=== PATIENT | male | born 1975 | race Caucasian/White ===

== ENCOUNTER 2018-06-05 10:23 | Emergency (ER) | payer BC, OTHER ==
[~2018-06-05] VITALS: Ht 182.9 cm; Wt 91.6 kg
--- NOTE | 2018-06-05 10:54 | ED Lower Extremity ---
General Chief Complaint: Lower Extremity Stated Complaint: LEFT CALF MUSCLE PAIN Source: patient Exam Limitations: no limitations History of Present Illness Date Seen by Provider: Jun 05, 2018 Time Seen by Provider: 10:46 Initial Comments Patient presents to ER by private conveyance with a chief complaint that he was working out doing some leg lifts with weights and heard/felt a tearing popping sensation and felt searing pain in his gastrocnemius on the left side. He stopped working out immediately went home and iced it and took ibuprofen with only minimal relief. He is still hurting this morning so he came in. His last dose of ibuprofen was at about 6:30 this morning. He is having no fevers chills nausea sweats vomiting or diarrhea. He has no history of surgeries on his leg or any other orthopedic surgeries. He had no trauma otherwise to the leg. Patient states about a month or 2 ago he was on minocycline for about 4 weeks for some acne on his back that cleared up. Allergies and Home Medications Allergies Coded Allergies: No Known Drug Allergies (Unverified , 06/05/18) Home Medications No Active Prescriptions or Reported Meds Patient Home Medication List Home Medication List Reviewed: Yes Constitutional: No chills, No diaphoresis EENTM: No hearing loss, No ear pain Respiratory: No cough, No short of breath Cardiovascular: No chest pain, No palpitations Gastrointestinal: No abdominal pain, No constipation Genitourinary: No discharge, No dysuria Musculoskeletal: No back pain, No joint pain Skin: No pruritus, No rash Psychiatric/Neurological: Denies Headache, Denies Numbness Past Urypaje-Mhyplf-Ekfkfr Hx Patient Social History Alcohol Use: Rarely Uses Recreational Drug Use: No Smoking Status: Never a Smoker Recent Foreign Travel: No Contact w/Someone Who Travel: No Recent Hopitalizations: No Physical Abuse: No Sexual Abuse: No Past Medical History Surgeries: Yes Adenoidectomy, Eye Surgery, Tonsillectomy Nursing Suicide Risk Score: 0 Physical Exam Vital Signs Vital Signs - First Documented 06/05/18 10:30 Temp 97.1 Pulse 109 Resp 18 B/P (MAP) 148/70 (96) Pulse Ox 96 Capillary Refill : Height, Weight, BMI Height: ', " Weight: lbs oz, kg Method: ,BMI General Appearance: WD/WN, no apparent distress HEENT: PERRL/EOMI, normal ENT inspection Cardiovascular: normal peripheral pulses, regular rate, rhythm Respiratory: no respiratory distress, no accessory muscle use Legs: right leg non-tender; bilateral leg normal inspection, bilateral leg normal range of motion; right leg no evidence of injury; left leg pain, left leg soft tissue tenderness, left leg swelling (mild) Neurologic/Tendon: normal sensation, normal motor functions, other (partial Arora sign left leg. He has reduced movement of the calcaneus on squeezing the gastrocnemius) Neurologic/Psychiatric: alert, oriented x 3 Skin: normal color, warm/dry Progress/Results/Core Measures Results/Orders My Orders Orders - RADHA AKERS Hydrocodone/Apap 5/325 Tablet (Lortab 5 (06/05/18 11:00) Vital Signs/I&O 06/05/18 10:30 Temp 97.1 Pulse 109 Resp 18 B/P (MAP) 148/70 (96) Pulse Ox 96 Progress Progress Note : Time: 10:58 Progress Note Discussed doing an ultrasound to further concern from the diagnosis but medically he appears to have at least a partial Achilles tear and will have him follow up with Drs. Anegla outpatient. We'll put him in a boot. We'll give him some hydrocodone in addition to the Motrin. Consults : Consulting Physician: JESUS ANGELA MD Consults Notes Discussed case and he suggests putting the patient in a boot and have him follow -up with him in the clinic. Departure Impression Primary Impression: Achilles rupture, left Qualified Codes: S86.012A - Strain of left Achilles tendon, initial encounter Disposition: 01 HOME, SELF-CARE Condition: Stable Departure-Patient Inst. Decision time for Depature: 11:00 Referrals: NO,LOCAL PHYSICIAN (PCP/Family) Primary Care Physician Patient Instructions: Achilles Tendon Rupture (DC) Add. Discharge Instructions: Use muscle rubs, Motrin 800 mg every 8 hours and 1-2 tablets of hydrocodone every 6 hours as needed for breakthrough pain. Keep the boot on. Follow-up with Drs. Angela in the clinic. All discharge instructions reviewed with patient and/or family. Voiced understanding. Scripts Hydrocodone Bit/Acetaminophen (Hydrocodone/Acetaminophen 5/325mg Tablet) 1 Tab Tab 1-2 EACH PO Q6H PRN for BREAKTHROUGH PAIN, #15 TAB 0 Refills Prov: RADHA AKERS 06/05/18 Work/School Note: Work Release Form Date Seen in the Emergency Department: Jun 05, 2018 Return to Work: Jun 06, 2018 Restrictions: Need Release from Doctor Other Restrictions Listed Below: Wear boot at all times until released by physician. No lifting over #20. Copy Copies To 1: JESUS ANGELA MD, TITUS J Jun 05, 2018 10:54
[2018-06-05] MEDS ORDERED: HYDROcodone/APAP 5 MG/325 MG (LORTAB) TAB PO ONE (11:00)
[2018-06-05] MEDS ORDERED: ACHD5005 PO (11:01)
[2018-06-05] MEDS ORDERED: ONDANSETRON 4 MG (ZOFRAN) ORAL DISSOLVE TAB ONE (11:17)
[2018-06-05] MEDS ORDERED: ONDA4TAB11 PO (11:20)
[2018-06-05 11:22] VITALS: BP 148/70
[2018-06-05] MEDS ORDERED: ONDANSETRON 4 MG (ZOFRAN) ORAL DISSOLVE TAB PO ONE (11:30)
== END 2018-06-05 11:22 | disposition home or self-care (01) ==
LOC: ER 10:26
DX: S86.012A Strain of left Achilles tendon, initial encounter (principal); Z90.89 Acquired absence of other organs; X50.0XXA Overexertion from strenuous movement or load, initial encounter
CPT/HCPCS: 99283

== ENCOUNTER → 2018-06-21 | Outpatient (CLI) | payer BC ==
[~2018-06-21] MED LIST: ACHD5005 PO; ONDA4TAB11 PO
--- NOTE | 2018-06-21 14:03 | Diagnostic Imaging Report ---
EXAMINATION: Cervical spine. INDICATION: Neck pain. FINDINGS: AP, lateral, odontoid, and swimmer's views were obtained. There are no prior studies available for comparison. The lateral view shows the vertebral body heights and alignment to be generally within normal limits. The intervertebral disc spaces are fairly well maintained. There is no fracture or acute bony abnormality noted. There are small bilateral cervical ribs. There is no sign of retropharyngeal edema. The lung apices are clear. IMPRESSION: 1. There is no evidence for an acute bony abnormality. There are small bilateral cervical ribs. 2. If there is clinical concern regarding spinal stenosis or nerve root encroachment, then MRI will be recommended for additional study. Dictated by: Dictated on workstation # [id number]
== END ==
LOC: RAD 12:51
DX: M54.2 Cervicalgia (principal)
CPT/HCPCS: 72040

== ENCOUNTER → 2018-06-26 | Outpatient (CLI) | payer BC ==
--- NOTE | 2018-06-26 08:28 | Diagnostic Imaging Report ---
PROCEDURE: MR imaging cervical spine without contrast. TECHNIQUE: Multiplanar, multisequence MR imaging of the cervical spine was performed without contrast. INDICATION: Cervical radiculopathy. COMPARISON: Cervical spine radiographs 06/21/2018. FINDINGS: Normal alignment. Vertebral body heights are preserved. Normal bone marrow signal. No abnormal signal in the cervical spinal cord. The visualized paravertebral soft tissues are unremarkable. C2-C3: Uncovertebral joint hypertrophy results in mild right neural foraminal narrowing. No spinal canal or left neural foraminal narrowing. C3-C4: Uncovertebral joint hypertrophy results in moderate right neural foraminal narrowing. No left neural foraminal or spinal canal narrowing. C4-C5: No spinal canal or neural foraminal narrowing. C5-C6: Right paracentral disc osteophyte complex results in advanced right neural foraminal narrowing. Uncovertebral joint hypertrophy also contributes to moderate left neural foraminal narrowing. Broad-based disc bulge results in mild spinal canal narrowing. C6-C7: No spinal canal or neural foraminal narrowing. C7-T1: No spinal canal or neural foraminal narrowing. IMPRESSION: 1. Spondylotic changes are greatest at C5-C6 and there is advanced right and moderate left neural foraminal narrowing. There is also moderate neural foraminal narrowing on the right at C3-C4. 2. No acute osseous findings. 3. No abnormal signal in the cervical spinal cord. Dictated by: Dictated on workstation # [id number]
== END ==
LOC: RAD 07:14
DX: M47.22 Other spondylosis with radiculopathy, cervical region (principal); M99.71 Connective tissue and disc stenosis of intervertebral foramina of cervical region
CPT/HCPCS: 72141

== ENCOUNTER 2018-08-06 11:11 | Emergency (ER) | payer BC ==
[~2018-08-06] VITALS: Ht 182.9 cm; Wt 89.4 kg
--- NOTE | 2018-08-06 11:36 | ED Cough/URI ---
General Chief Complaint: Cough/Cold/Flu Symptoms Stated Complaint: COUGH;HEADACHE;RUNNY NOSE Nursing Triage Note: pt presents to ed with complaints of cough/nasal congestion/birch since 2299 yesterday. pt denies taking any medicine for his symptoms Source: patient Exam Limitations: no limitations History of Present Illness Date Seen by Provider: Aug 06, 2018 Time Seen by Provider: 11:34 Initial Comments Patient is a 42-year-old male who presents to the emergency room with complains of cough, nasal congestion, headache since 2299 last night. He reports that he was sent home from work when his cough today and decided to come to the emergency room to get checked out. He denies taking any lwxg-smf-tavnxri medications for his symptoms. Timing/Duration: yesterday Associated Symptoms: cough, headache, nasal congestion, nasal drainage Allergies and Home Medications Allergies Coded Allergies: vancomycin (Verified Allergy, Unknown, 08/06/18) Home Medications Hydrocodone Bit/Acetaminophen 1 Tab Tab, 1-2 EACH PO Q6H PRN for BREAKTHROUGH PAIN Prescribed by: RADHA AKERS on 06/05/18 1101 Ondansetron 4 Mg Tab.rapdis, 4 MG PO Q6H PRN for NAUSEA/VOMITING Prescribed by: RADHA AKERS on 06/05/18 1120 Patient Home Medication List Home Medication List Reviewed: Yes Review of Systems Review of Systems Constitutional: see HPI; No chills, No fever EENTM: see HPI, nose congestion Respiratory: see HPI, cough Psychiatric/Neurological: See HPI, Headache All Other Systems Reviewed Negative Unless Noted: Yes Past Dychlno-Jkvevq-Vuvjat Hx Past Med/Social Hx: Reviewed Nursing Past Med/Soc Hx Patient Social History Alcohol Use: Occasionally Uses Alcohol Beverage of Choice: Beer Recreational Drug Use: No Smoking Status: Never a Smoker Recent Foreign Travel: No Contact w/Someone Who Travel: No Recent Infectious Disease Expo: No Recent Hopitalizations: No Physical Abuse: No Sexual Abuse: No Mistreated: No Fear: No Past Medical History Surgeries: Yes Adenoidectomy, Eye Surgery, Tonsillectomy Cardiac: No Neurological: No Genitourinary: No Gastrointestinal: No Musculoskeletal: Yes (chronic neck pain) HEENT: No Cancer: No Psychosocial: No Integumentary: No Blood Disorders: No Family Medical History Reviewed Nursing Family Hx Physical Exam Vital Signs - First Documented 08/06/18 11:21 Temp 98.7 Pulse 90 Resp 18 B/P (MAP) 149/63 (91) Pulse Ox 100 O2 Delivery Room Air Capillary Refill : Less Than 3 Seconds Height: 6'0" Weight: 197lbs. oz. 89.007255je; BMI Method:Stated General Appearance: WD/WN, no apparent distress HEENT: PERRL/EOMI, normal ENT inspection, TMs normal, pharynx normal Respiratory: chest non-tender, lungs clear, normal breath sounds, no respiratory distress, no accessory muscle use Cardiovascular: regular rate, rhythm, no edema, no gallop, no JVD, no murmur Neurologic/Psychiatric: alert, normal mood/affect, oriented x 3 Skin: normal color, warm/dry Progress/Results/Core Measures Suspected Sepsis Recent Fever Within 48 Hours: No Infection Criteria Present: None New/Unexplained Altered Menta: No Sepsis Screen: No Definite Risk SIRS Temperature:98.7 Pulse: 90 Respiratory Rate: 18 Blood Pressure 149 /63 Mean: 91 Results/Orders My Orders Orders - CJ MENESES Promethazine/ Codeine Syrup (Phenergan W (08/06/18 11:45) Medications Given in ED Current Medications Medications Dose Ordered Sig/Jm Route Start Time Stop Time Status Last Admin Dose Admin Promethazine HCl/ Codeine 5 ml ONCE ONCE PO 08/06/18 11:45 08/06/18 11:46 DC 08/06/18 11:37 5 ML Vital Signs/I&O 08/06/18 08/06/18 08/06/18 11:21 11:21 11:40 Temp 98.7 98.3 Pulse 90 87 Resp 18 16 B/P (MAP) 149/63 (91) 132/78 Pulse Ox 100 99 O2 Delivery Room Air Capillary Refill : Less Than 3 Seconds Blood Pressure Mean: 91 Progress Note : Time: 11:40 Progress Note I believe that this is a viral illness. He has had symptoms less than 14 hours. I have instructed him to use lhoh-mxj-nyyglws medications Tylenol ibuprofen for pain, and I have prescribed a Phenergan dextro morphine cough syrup. He agrees with plans for discharge, return precautions were given. Departure Impression Primary Impression: Upper respiratory infection, viral Disposition: 01 HOME, SELF-CARE Condition: Stable/Unchanged Departure-Patient Inst. Decision time for Depature: 11:43 Referrals: CAROLYN HERNANDEZ MD (PCP/Family) Primary Care Physician Patient Instructions: Cough, Runny Nose, and the Common Cold (DC) Add. Discharge Instructions: Take medications as directed. Follow-up with your primary care provider within 1 week for recheck. He may use ibuprofen and Tylenol as directed by the bottle for pain relief. Return back to the emergency room for any worsening symptoms and as needed. All discharge instructions reviewed with patient and/or family. Voiced understanding. CJ MENESES Aug 06, 2018 11:36
[2018-08-06 11:40] VITALS: BP 132/78
[2018-08-06] MEDS ORDERED: PROMETHAZINE/ CODEINE SYRUP 5 ML UDC PO ONE (11:45)
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
== END 2018-08-06 11:40 | disposition home or self-care (01) ==
LOC: EDUNIT# 11:11 → ER 11:12
DX: J06.9 Acute upper respiratory infection, unspecified (principal); Z88.0 Allergy status to penicillin; Z90.89 Acquired absence of other organs
CPT/HCPCS: 99283

== ENCOUNTER → 2018-08-17 | Outpatient (CLI) | payer BC ==
[~2018-08-17] MED LIST changes: +GADOBUTROL 10 MMOL/10 ML (GADAVIST) VIAL IV ONE
--- NOTE | 2018-08-17 16:19 | Diagnostic Imaging Report ---
PROCEDURE: MR imaging of the brain with and without contrast. TECHNIQUE: Multiplanar, multisequence MR imaging of the brain was performed with and without contrast. INDICATION: Headaches. COMPARISON: There are no prior studies available for comparison. FINDINGS: There is no mass, shift of the midline, or hemorrhage to suggest an acute intracranial abnormality. There is a well-circumscribed 7 x 8 mm nonenhancing lesion. 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 There is no abnormal enhancement on the postcontrast series to indicate a neoplastic or infectious process. There is no abnormal signal arising from the brain on the diffusion series to indicate an area of acute ischemia either. The FLAIR series is also unremarkable for any abnormal signal in the periventricular white matter that would suggest demyelinating disease. The ventricles are not abnormally dilated. The sella is not enlarged, and the expected carotid flow voids are evident bilaterally. The orbits are symmetrical and within normal limits. The seventh and eighth nerve complexes are unremarkable. There is mucosal thickening and/or retention cyst in the floor of the right maxillary antrum. There is minimal mucosal thickening of the left maxillary antrum. The sinuses are otherwise generally clear. IMPRESSION: 1. There is no evidence for an acute intracranial abnormality. 2. 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 3. There is no abnormal enhancement to suggest a neoplastic or infectious process. There is no sign of demyelinating disease either. Dictated by: Dictated on workstation # [id number]
== END ==
LOC: RAD 14:08
DX: E34.8 Other specified endocrine disorders (principal); R51 Headache
CPT/HCPCS: 70553

== ENCOUNTER 2019-04-25 18:05 | Emergency (ER) | payer SELFPAY ==
[~2019-04-25] VITALS: Ht 182.9 cm; Wt 86.2 kg
[~2019-04-25 18:05] MED LIST changes: -GADOBUTROL 10 MMOL/10 ML (GADAVIST) VIAL IV ONE
[2019-04-25] MEDS ORDERED: GABA-488 (18:30)
[2019-04-25] MEDS ORDERED: TRIAMCINOLONE ACET (KENALOG-40) 40 MG/ML 1 ML VIAL IA ONE (18:30)
[2019-04-25] MEDS ORDERED: MELO15TA39 (18:30)
[2019-04-25] MEDS ORDERED: LIDOCAINE 1% INJ 20 ML 20 ML VIAL INJ ONE (18:30)
--- NOTE | 2019-04-25 18:31 | ED Lower Extremity ---
General Chief Complaint: Lower Extremity Stated Complaint: L KNEE PAIN Source: patient Exam Limitations: no limitations History of Present Illness Date Seen by Provider: April 25, 2019 Time Seen by Provider: 18:27 Initial Comments To ER with reports of left knee pain for about one week. States that he does lift weights, has some occasional aches and pains in the knee after doing so but it's nothing that ice and ibuprofen doesn't help with. He was on the floor about a week ago helping his children clean up their toys when the pain started, he does not recall any particular injury. He denies fevers or chills. Does feel that the left knee is a bit swollen. Onset: just prior to arrival Severity: moderate Pain/Injury Location: left knee Method of Injury: unknown Modifying Factors: Worse With Movement Allergies and Home Medications Allergies Coded Allergies: vancomycin (Verified Allergy, Unknown, 08/06/18) Home Medications Hydrocodone Bit/Acetaminophen 1 Tab Tab, 1-2 EACH PO Q6H PRN for BREAKTHROUGH PAIN Prescribed by: RADHA AKERS on 06/05/18 1101 Ondansetron 4 Mg Tab.rapdis, 4 MG PO Q6H PRN for NAUSEA/VOMITING Prescribed by: RADHA AKERS on 06/05/18 1120 Patient Home Medication List Home Medication List Reviewed: Yes Review of Systems Constitutional: see HPI EENTM: see HPI Respiratory: no symptoms reported Cardiovascular: no symptoms reported Genitourinary: no symptoms reported Musculoskeletal: see HPI Skin: no symptoms reported Psychiatric/Neurological: No Symptoms Reported Past Fjzewsw-Uqcrpb-Cslkws Hx Patient Social History Alcohol Use: Occasionally Uses Alcohol Beverage of Choice: Beer Recreational Drug Use: No Smoking Status: Never a Smoker Recent Foreign Travel: No Contact w/Someone Who Travel: No Recent Hopitalizations: No Physical Abuse: No Sexual Abuse: No Mistreated: No Fear: No Past Medical History Surgeries: Yes Adenoidectomy, Eye Surgery, Tonsillectomy Cardiac: No Neurological: No Genitourinary: No Gastrointestinal: No Musculoskeletal: Yes (chronic neck pain) HEENT: No Cancer: No Psychosocial: No Integumentary: No Blood Disorders: No Physical Exam Vital Signs Vital Signs - First Documented 04/25/19 18:15 Temp 97.5 Pulse 90 Resp 18 B/P (MAP) 163/97 (119) Pulse Ox 98 O2 Delivery Room Air Capillary Refill : Height, Weight, BMI Height: 6'0" Weight: 197lbs. oz. 89.904991zr; BMI Method:Stated General Appearance: WD/WN, no apparent distress HEENT: PERRL/EOMI, normal ENT inspection Respiratory: no respiratory distress, no accessory muscle use Hips: bilateral hip non-tender, bilateral hip normal inspection, bilateral hip normal range of motion Legs: bilateral leg non-tender, bilateral leg normal inspection, bilateral leg normal range of motion Knees: left knee pain, left knee soft tissue tenderness, left knee swelling, left knee other (no erythema or overlying punctures in the skin) Ankles: bilateral ankle non-tender, bilateral ankle normal inspection, bilateral ankle normal range of motion Neurologic/Psychiatric: alert, normal mood/affect, oriented x 3 Skin: normal color, warm/dry Progress/Results/Core Measures Results/Orders My Orders Orders - CASSY JONES APRN Knee, Left, 3 Views (04/25/19 18:25) Body Fluid Cell Count (04/25/19 18:25) Body Fluid Culture (04/25/19 18:25) Crystals,Body Fluid (04/25/19 18:25) Lidocaine 1% Inj 20 Ml (Xylocaine 1% Inj (04/25/19 18:30) Triamcinolone Acetonide Im (Kenalog-40) (04/25/19 18:30) Vital Signs/I&O 04/25/19 18:15 Temp 97.5 Pulse 90 Resp 18 B/P (MAP) 163/97 (119) Pulse Ox 98 O2 Delivery Room Air Departure Communication (Admissions) States that he has been taking meloxicam at home. States that he takes no other medications for pain. He is listed an address of [facility], I did look him up on [employer]. This reports that he is on Suboxone. I directly questioned him about Suboxone use and he states "I'm not on that". I then discussed with him that it shows that was filled about 2 weeks ago, he pulled most and then stated "I'm sorry I don't like telling anybody that I'm on that". This is a red flag for opioid diversion as he was directly questioned and denied it. We'll proceed with x-ray of the knee, there does appear to be any effusion, we'll anesthetize the overlying skin and attempted to aspirate any additional fluid that may be present, intra-articular injection of Kenalog. 190-prior to x-ray/arthrocentesis, one of the nurses noticed the patient leaving the emergency room without without notifying staff. All orders will be canceled. Impression Primary Impression: Effusion, left knee Disposition: 07 AGAINST MEDICAL ADVICE Condition: Against Medical Advice Departure-Patient Inst. Referrals: CAROLYN HERNANDEZ MD (PCP/Family) Primary Care Physician CASSY JONES APRN April 25, 2019 18:31
--- NOTE | 2019-04-25 18:59 | NUR ---
PT SEEN WALKING OUT OF DEPT BY STAFF. PT NOT IN WR AT THIS TIME.
--- NOTE | 2019-04-25 19:00 | NUR ---
REPORT TO URIEL STAUFFER
[2019-04-25 19:23] VITALS: BP 163/97
== END 2019-04-25 19:24 | disposition left against medical advice (07) ==
LOC: EDUNIT# 18:05 → ER 18:07
DX: M25.462 Effusion, left knee (principal); Z88.1 Allergy status to other antibiotic agents; Z90.89 Acquired absence of other organs